=== PATIENT | female | born 1945 | race Caucasian/White ===

== ENCOUNTER 2020-07-04 21:58 | Emergency (ER) | payer MEDICARE ==
[~2020-07-04] VITALS: Ht 162.6 cm; Wt 52.2 kg
--- NOTE | 2020-07-04 22:31 | NUR ---
PT BIBS C/O ABD PAIN X 2 DAYS. PT PLACED ON MONITOR AND PULSE OX. AWAITING MD FOR EVAL AND ORDERS.
--- NOTE | 2020-07-04 22:36 | NUR ---
MD AT BEDSIDE FOR EVAL. AWAITING ORDERS.
--- NOTE | 2020-07-04 23:40 | NUR ---
Patient discharged to home in stable condition. Written and verbal after care instructions given. Patient verbalizes understanding of instruction. Pt ambulated with steady gait.
[2020-07-04 23:41] VITALS: BP 129/72
== END 2020-07-04 23:41 | disposition home or self-care (01) ==
LOC: ER 22:03
DX: N20.0 Calculus of kidney (principal); Z87.440 Personal history of urinary (tract) infections